=== PATIENT | female | born 1955 | race Caucasian/White ===

== ENCOUNTER 2017-06-13 05:02 | Day surgery (SDC) | payer BC ==
[2017-06-06 14:41] VITALS: BMI 29.7
--- NOTE | 2017-06-11 15:41 | HP ---
[facility] - Chief Complaint Chief Complaint: Pt is here to investigate an abnormal pelvic sonogram which shows possible endometrial hyperplasia. 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 A pelvic sonogram at the time revealed possible endometrial hyperplasia. 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 No: Ascites, Cancer, Constipation, Crohn's Disease , Diverticulitis, Diverticulosis, Esophageal Varices, Gastritis, GI Bleed, Hemorrhoids, Hiatal Hernia, Inflamatory Bowel Disease, Irritable Bowel Disease, Pancreatitis, Peptic Ulcer Disease, Ulcerative Colitis, Other Hepatobiliary: No: Cirrhosis, Cholelithiasis, Cholecystitis, Choledocholithiasis , Hepatitis A, Hepatitis B, Hepatitis C, Other Renal/: No: Renal Failure, Renal Inusuff, BPH, Cancer, Hematuria, Hemodialysis , Neurogenic Bladder, Renal Calculi, UTI, Other Reproductive: No: Ectopic , Endometriosis, Fibroids, PID, Polycystic Ovary Syndrome, Postmenopausal, Other ...: No ...: 3 ...Para: 2 Heme/Onc: No: Anemia, B12 Deficiency, Bleeding Disorder, Cancer, Current Chemotherapy, Current Radiation Therapy, Hemochromatosis, Hypercoaguable State, Myeloproliferative Synd, Sickle Cell Disease, Sickle Cell Trait, Thrombocytopenia, Other Infectious Disease: No: AIDS, C-Diff, Herpes Zoster, HIV, MRSA, STD's, Tuberculosis, VREF, Other Musculoskeletal: No: Bursitis, Chronic low back pain, Hemiparesis, Hemiplegia, Osteoarthritis, Paraplegia, Other Rheumatology: No: Fibromyalgia, Gout, Lupus, Rheumatoid Arthritis, Sarcoidosis, Vasculitis, Other ENT: No: Allergic Rhinitis, Sinusitis, Other Endocrine: No: Hammond's Disease, Bebeto's Disease, Diabetes Insipidus, Diabetes Mellitus (2 c/s, foot surgery, chronic back pain), Hyperparathyroidism , Hyperthyroidism, Hypothyroidism, Osteopenia, SIADH, Other - Current Medications Current Medications: Home Medications Medication Instructions Recorded Dexlansoprazole [Dexilant] 60 mg PO DAILY PRN 06/06/17 Tramadol HCl 50 mg PO PRN PRN 06/06/17 Satellite Physical Exam - Physical Examination General Appearance: Well Nourished, Well Developed, Alert & Oriented x3 ENT: Clear, No Discharge, No masses Lung: Clear to auscultation Heart: Regular rate & rhythm, Normal S1, Normal S2 Breasts: Soft, Non-Tender, No masses bilaterally Abdomen: Soft, No tenderness, No CVA Extremities: No edema, No tenderness/swelling Pelvic Exam: Within normal limits External Genitalia, Within normal limits Vagina, Within normal limits Cervix, Within normal limits Uterus, Within normal limits [facility] Neurological: Intact, Alert, Oriented Satellite Impression/Plan - Impression/Plan Impression: Endometrial hyperplasia Operative Procedure: Hysteroscopy with D/C Date to be Performed: 06/13/17
[2017-06-13 06:31] VITALS: TEMP 97.8
[2017-06-13] MEDS ORDERED: MIDAZOLAM HCL 2 MG/2 ML SINGLE DOSE VIAL ONE (07:05)
[2017-06-13] MEDS ORDERED: SUCCINYLCHOLINE CHLORIDE 200 MG/10 ML VIAL ONE (07:05)
[2017-06-13] MEDS ORDERED: DESFLURANE GAS 240 ML BOTTLE IH ONE (07:11)
[2017-06-13] MEDS ORDERED: PROPOFOL 20 ML ONE ×2 (07:53→07:54)
[2017-06-13] MEDS ORDERED: ONDANSETRON 4 MG/2 ML VIAL IVPUSH PRN (08:17)
[2017-06-13] MEDS ORDERED: KETOROLAC TROMETHAMINE 30 MG/1 ML VIAL IVPUSH ONE ×2 (08:17→08:25)
[2017-06-13] MEDS ORDERED: oxyCODONE HCL 5 MG TABLET PO PRN (08:17)
[2017-06-13] MEDS ORDERED: LACTATED RINGERS SOLUTION 1,000 ML IV SCH (08:30)
--- NOTE | 2017-06-13 08:49 | OP ---
DATE OF OPERATION: 06/13/2017 PREOPERATIVE DIAGNOSIS: Endometrial hyperplasia. POSTOPERATIVE DIAGNOSIS: Endometrial hyperplasia. OPERATIVE PROCEDURE: Hysteroscopy, dilatation and curettage. SURGEON: Cinthya Estrada MD ANESTHESIA: Given by jointer submarine cable. MAC type of anesthesia given. ESTIMATED BLOOD LOSS: Approximately 5 mL. DESCRIPTION OF PROCEDURE: The patient was brought to the operating room, placed in the supine position, given anesthesia by the jointer submarine cable, placed in the lithotomy position, prepped and draped in the usual manner. The patient was examined. The uterus was noted to be anteverted. Adnexa negative. The uterus was normal in size. A speculum was placed into the vagina. The anterior lip of the cervix was grasped with a tenaculum. The uterus was measured to be 7.5 cm. A hysteroscopy was performed by inserting the 3-mm hysteroscope into the uterus. The endometrial cavity appeared cylindrical and atrophic. No polyps and no fibroids were noted. A D&C was carried out with a small curette, and minimal tissue was obtained. An endocervical curettage was also carried out with a small curette, and scant tissue was also obtained. The patient tolerated procedure well. Hemostasis was good. CINTHYA ESTRADA M.D. [id number]
[2017-06-13 12:08] VITALS: PULSE 78
[2017-06-13 12:11] VITALS: BP 128/70
--- NOTE | 2017-06-16 12:32 | PATH ---
Surgical Pathology Report Patient Name: ALAN BONE [facility]. Rec. #: [id number] /Age/Gender: 1955 (Age: 62) / F Account: [id number] Location: [facility] Taken: 06/13/2017 Received: 06/13/2017 Reported: 06/16/2017 Physicians: Derrick Estrada M.D. Specimen(s) Received A: ENDOMETRIAL CURETTINGS B: ENDOCERVICAL CURETTINGS Clinical History Thickened endometrium Final Diagnosis A. ENDOMETRIUM, CURETTING: ATROPHIC ENDOMETRIUM, AND BENIGN CERVICAL TISSUE. NO ENDOMETRIAL HYPERPLASIA OR CARCINOMA IDENTIFIED. B. ENDOCERVIX, CURETTING: SCANT BENIGN SQUAMOUS EPITHELIUM, AND CLOTTED BLOOD. Electronically Signed Quinn Candelario M.D. Gross Description A. Received in formalin, labeled "endometrial curettage" is an aggregate of preston-red soft tissue measuring 1.0 x 0.8 x 0.3 cm. in greatest dimension. The specimen is submitted in toto in one cassette. B. Received in formalin, labeled "endocervical curette" is aggregate of preston soft tissue measuring 0.4 x 0.3 x 0.1 cm. in greatest dimension. The specimen is submitted in toto in one cassette. AF/06/13/2017 final/06/13/2017
== END 2017-06-13 12:12 | disposition home or self-care (01) ==
LOC: JASU-SURG 05:02
PROVIDERS: ATTEND Obstetrics & Gynecology
PROC: 0UDB8ZX Extraction of Endometrium, Via Natural or Artificial Opening Endoscopic, Diagnostic (ICD-10-PCS; principal; 2017-06-13 07:30)
DX: N85.00 Endometrial hyperplasia, unspecified (principal)
CPT/HCPCS: 88305-TC; 94760

== ENCOUNTER 2023-05-31 19:08 | Inpatient (IN) | payer BC, OTHER ==
[2023-05-31 19:53] LABS: BASO % 0.4 % (0-2.0); EOS % 3.3 % (0-4.5); HEMATOCRIT 37.3 % (32.4-45.2); HEMOGLOBIN 12.9 GM/dL (10.7-15.3); LYMPH % 37.6 % (8-40); MCH 31.6 pg (25.7-33.7); MCHC 34.5 g/dl (32.0-36.0); MEAN CELL VOLUME 91.4 fl (80-96); MEAN PLT VOLUME 7.7 fl (7.5-11.1); MONO % 7.5 % (3.8-10.2); NEUT % 51.2 % (42.8-82.8); PLATELET COUNT 243 10^3/uL (134-434); RBC 4.08 M/mm3 (3.60-5.2); RDW 13.3 % (11.6-15.6); WHITE BLOOD COUNT 7.1 K/mm3 (4.0-10.0)
[2023-05-31 20:00] LABS: INR 1.17 (0.83-1.09); PROTHROMBIN TIME (PATIENT) 13.5 SEC (9.7-13.0)
[2023-05-31 20:42] LABS: POTASSIUM 3.4 mmol/L (3.5-5.1)
[2023-05-31 20:43] LABS: CALCIUM 8.8 mg/dL (8.5-10.1)
[2023-05-31 20:44] LABS: ALBUMIN 3.5 g/dl (3.4-5.0); BLOOD UREA NITROGEN 19.3 mg/dL (7-18)
[2023-05-31 20:47] LABS: CREATININE 0.8 mg/dL (0.55-1.3)
[2023-05-31 20:48] LABS: TOT PROT 7.1 g/dl (6.4-8.2)
[2023-05-31 20:50] LABS: BILIRUBIN,TOTAL 0.7 mg/dL (0.2-1)
[2023-05-31] MEDS ORDERED: ASPIRIN 325 MG ENTERIC COATED TABLET (FP) PO ONE (20:55)
[2023-05-31] MEDS ORDERED: ATORVASTATIN CA 40 MG TABLET (FP) PO ONE (20:55)
[2023-05-31] MEDS ORDERED: POTASSIUM CHLORIDE ORAL LIQUID 20 MEQ/15 ML PO ONE (22:03)
[2023-05-31] MEDS ORDERED: ASPIRIN 325 MG ENTERIC COATED TABLET (FP) ONE (22:17)
[2023-05-31] MEDS ORDERED: ATORVASTATIN CA 40 MG TABLET (FP) ONE (22:18)
[2023-05-31] MEDS ORDERED: POTASSIUM CHLORIDE TABS 20 MEQ TABLET.ER (FP) PO ONE (22:18)
[2023-06-01 02:44] VITALS: BMI 27.7
[2023-06-01 07:19] LABS: HEMATOCRIT 39.5 % (32.4-45.2); HEMOGLOBIN 13.1 GM/dL (10.7-15.3); MCH 30.8 pg (25.7-33.7); MCHC 33.1 g/dl (32.0-36.0); MEAN CELL VOLUME 92.9 fl (80-96); MEAN PLT VOLUME 8.6 fl (7.5-11.1); PLATELET COUNT 248 10^3/uL (134-434); RBC 4.25 M/mm3 (3.60-5.2); RDW 13.2 % (11.6-15.6); WHITE BLOOD COUNT 6.6 K/mm3 (4.0-10.0)
[2023-06-01 07:36] LABS: POTASSIUM 4.3 mmol/L (3.5-5.1)
[2023-06-01 07:38] LABS: CALCIUM 8.7 mg/dL (8.5-10.1)
[2023-06-01 07:39] LABS: ALBUMIN 3.4 g/dl (3.4-5.0); BLOOD UREA NITROGEN 13.5 mg/dL (7-18); MAGNESIUM 2.1 mg/dL (1.8-2.4)
[2023-06-01 07:42] LABS: CREATININE 0.6 mg/dL (0.55-1.3); PHOSPHOROUS 3.5 mg/dL (2.5-4.9)
[2023-06-01 07:43] LABS: BILIRUBIN,TOTAL 0.7 mg/dL (0.2-1)
[2023-06-01 07:44] LABS: TOT PROT 6.7 g/dl (6.4-8.2)
[2023-06-01] MEDS: ENOXAPARIN NA (PORCINE) 40 MG/0.4 ML DISP.SYRIN SQ SCH (09:48)
[2023-06-01] MEDS ORDERED: ASPIRIN COATED 81 MG TABLET.EC PO SCH (10:00)
[2023-06-01] MEDS ORDERED: CLOPIDOGREL BISULFATE 75 MG TABLET (FP) PO ONE (13:00)
[2023-06-01 13:44] LABS: URINE APPEARANCE CLEAR; URINE BILIRUBIN NEGATIVE (NEGATIVE); URINE COLOR YELLOW; URINE GLUCOSE (UA) NEGATIVE (NEGATIVE); URINE KETONE NEGATIVE (NEGATIVE); URINE LEUK ESTERASE NEGATIVE (NEGATIVE); URINE NITRITE NEGATIVE (NEGATIVE); URINE PROTEIN NEGATIVE (NEGATIVE)
[2023-06-01] MEDS ORDERED: ATORVASTATIN CA 80 MG TABLET (FP) PO SCH (22:00)
[2023-06-01] MEDS ORDERED: ATORVASTATIN CA 40 MG TABLET (FP) PO SCH (22:00)
[2023-06-02 08:40] LABS: HEMATOCRIT 39.8 % (32.4-45.2); HEMOGLOBIN 13.6 GM/dL (10.7-15.3); MCH 31.3 pg (25.7-33.7); MCHC 34.2 g/dl (32.0-36.0); MEAN CELL VOLUME 91.5 fl (80-96); PLATELET COUNT 256 10^3/uL (134-434); RBC 4.35 M/mm3 (3.60-5.2); RDW 13.6 % (11.6-15.6); WHITE BLOOD COUNT 6.2 K/mm3 (4.0-10.0)
[2023-06-02 09:02] LABS: POTASSIUM 4.6 mmol/L (3.5-5.1)
[2023-06-02 09:10] LABS: CALCIUM 9.1 mg/dL (8.5-10.1)
[2023-06-02 09:11] LABS: BLOOD UREA NITROGEN 14.1 mg/dL (7-18)
[2023-06-02 09:14] LABS: CREATININE 0.8 mg/dL (0.55-1.3)
[2023-06-02] MEDS ORDERED: ASPIRIN COATED 81 MG TABLET.EC PO SCH (10:00)
[2023-06-02] MEDS: ENOXAPARIN NA (PORCINE) 40 MG/0.4 ML DISP.SYRIN SQ SCH (10:52)
[2023-06-02 15:55] VITALS: BP 107/67; PULSE 69; RESP 18; TEMP 98.5
== END 2023-06-02 19:06 | disposition home or self-care (01) | DRG 69 ==
LOC: JER 19:08 → JERBED 23:55 → OBSVTOIN 06-01 01:01 → J4W 06-01 02:46
PROVIDERS: ADMIT Internal Medicine; ATTEND Internal Medicine
DX: G45.8 Other transient cerebral ischemic attacks and related syndromes (principal); K50.90 Crohn's disease, unspecified, without complications; R73.03 Prediabetes; R41.82 Altered mental status, unspecified; R47.81 Slurred speech; E78.5 Hyperlipidemia, unspecified; K21.9 Gastro-esophageal reflux disease without esophagitis; R29.702 NIHSS score 2; H54.62 Unqualified visual loss, left eye, normal vision right eye
CPT/HCPCS: 36415; 70450-TC; 71045-TC-FY; 80048; 80053; 80061; 81003; 82962; 83036; 83735; 84100; 85025; 85027; 85610; 87086; 93005; 93010; 93306-TC; 93880-TC; 97116-GP; 97161-GP; 99285-25; G0378